=== PATIENT | male | born 1960 | race Caucasian/White ===

== ENCOUNTER → 2017-03-31 | Outpatient (CLI) | payer BC ==
[~2017-03-31] MED LIST: IBUP-103 PO
--- NOTE | 2017-03-31 15:38 | DIAGNOSTIC IMAGING REPORT ---
LEFT HIP UNILATERAL 2 VIEWS CLINICAL HISTORY: M25.50 Arthralgia of multiple sites pain COMPARISON: None. DISCUSSION: Mild degenerative narrowing left and joint space. No evidence for acetabular protrusion. 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 There is no evidence for soft tissue swelling. IMPRESSION: Mild/moderate degenerative change. No acute process. Electronically signed by: Ian Palomino M.D. 03/31/2017 3:38 PM Dictated Date/Time: 03/31/2017 3:37 PM
--- NOTE | 2017-03-31 15:41 | DIAGNOSTIC IMAGING REPORT ---
RIGHT HIP UNILATERAL 2 VIEWS CLINICAL HISTORY: Arthralgia of multiple sites. COMPARISON: None FINDINGS: Alignment of the right hip is anatomic. No fracture or suspicious lesion. Joint space is preserved and there is minimal osteophytosis of the right hip. There is no evidence for avascular necrosis. IMPRESSION: Preserved right hip joint space with minimal osteophytosis. Electronically signed by: Byron Ruiz M.D. 03/31/2017 3:41 PM Dictated Date/Time: 03/31/2017 3:40 PM
--- NOTE | 2017-03-31 15:41 | DIAGNOSTIC IMAGING REPORT ---
RIGHT KNEE 3 VIEWS CLINICAL HISTORY: M25.50 Arthralgia of multiple sites Right pain COMPARISON: None. DISCUSSION: The bones and joint spaces appear intact. There is no evidence of fracture, dislocation or bony disease. Small bony exostosis projecting from the medial femoral condyle. IMPRESSION: Minimal degenerative change. No acute process. Electronically signed by: Ian Palomino M.D. 03/31/2017 3:41 PM Dictated Date/Time: 03/31/2017 3:40 PM
--- NOTE | 2017-03-31 15:43 | DIAGNOSTIC IMAGING REPORT ---
LEFT KNEE 3 VIEWS CLINICAL HISTORY: M25.50 Arthralgia of multiple sites both knees pain COMPARISON: None. DISCUSSION: Rather significant degenerative change medial joint compartment. Mild degenerative change patellofemoral joint. Lateral joint compartments with minimal reactive osteophytic change. There is no evidence for soft tissue swelling. IMPRESSION: Moderate/rather significant degenerative change primarily involving the medial joint compartment. Electronically signed by: Ian Palomino M.D. 03/31/2017 3:42 PM Dictated Date/Time: 03/31/2017 3:41 PM
--- NOTE | 2017-03-31 15:44 | DIAGNOSTIC IMAGING REPORT ---
RIGHT HAND MIN 3 VIEWS ROUTINE CLINICAL HISTORY: Arthralgia of multiple sites. COMPARISON: None FINDINGS: Alignment of the right hand is anatomic. No acute fracture is identified. There is an old healed fracture of the right fifth metacarpal. No erosions are identified. Joint spaces are preserved. Mild osteophytosis is noted within several articulations. IMPRESSION: 1. No radiographic evidence of an erosive/inflammatory arthropathy. 2. Preserved joint spaces with minimal osteophytosis of several articulations. Electronically signed by: Byron Ruiz M.D. 03/31/2017 3:43 PM Dictated Date/Time: 03/31/2017 3:41 PM
--- NOTE | 2017-03-31 15:45 | DIAGNOSTIC IMAGING REPORT ---
LEFT HAND MIN 3 VIEWS ROUTINE CLINICAL HISTORY: M25.50 LEFT HAND PAIN COMPARISON: None. DISCUSSION: The bony mineralization appears normal. No fractures are visualized. There are no erosive or destructive changes. There are osteoarthritic changes most pronounced at the level of the first carpometacarpal joint, and first metacarpal phalangeal joint. IMPRESSION: 1. No acute fractures 2. No evidence of erosive disease 3. Mild osteoarthritic changes most pronounced at the level of the thumb Electronically signed by: Julio Cesar Larkin M.D. 03/31/2017 3:45 PM Dictated Date/Time: 03/31/2017 3:44 PM
== END | disposition home or self-care (01) ==
LOC: C.RAD1850 15:01
PROVIDERS: ATTEND Internal Medicine
DX: M25.50 Pain in unspecified joint (principal)

== ENCOUNTER → 2017-04-05 | Outpatient (CLI) | payer BC ==
[2017-04-05 11:27] LABS: HEMATOCRIT 47.7 % (42-52); MEAN CELL VOLUME 90.7 fL (80-100); MEAN CORPUSCULAR HEMOGLOBIN 29.7 pg (25-34); MEAN CORPUSCULAR HGB CONC 32.7 g/dl (32-36); MEAN PLATELET VOLUME 10.4 fL (7.4-10.4); PLATELET COUNT 247 K/uL (130-400); RED BLOOD COUNT 5.26 M/uL (4.7-6.1); WHITE BLOOD COUNT 7.57 K/uL (4.8-10.8)
[2017-04-05 11:37] LABS: ALT/SGPT 33 U/L (12-78); AST/SGOT 8 U/L (15-37); BLOOD UREA NITROGEN 20 mg/dl (7-18); BUN/CREATININE RATIO 16.4 (10-20); CALCIUM 9.5 mg/dl (8.5-10.1); CARBON DIOXIDE 32 mmol/L (21-32); CHLORIDE 107 mmol/L (98-107); CHOLESTEROL 237 mg/dl (0-200); GLUCOSE 96 mg/dl (70-99); POTASSIUM 4.4 mmol/L (3.5-5.1); SODIUM 144 mmol/L (136-145)
[2017-04-05 11:38] LABS: ALB/GLOB RATIO 1.4 (0.9-2); ALKALINE PHOSPHATASE 67 U/L (45-117); HDL CHOLESTEROL 60 mg/dl; LDL CHOLESTEROL CALCULATED 139 mg/dl; TRIGLYCERIDES 190 mg/dl (0-150); VERY LOW DENSITY LIPOPROT CALC 38 mg/dl
[2017-04-05 14:44] LABS: LYME DISEASE AB IGG NEG (NEG); LYME DISEASE AB IGM NEG (NEG)
== END | disposition home or self-care (01) ==
LOC: C.LAB 10:36
PROVIDERS: ATTEND Internal Medicine
DX: Z00.00 Encounter for general adult medical examination without abnormal findings (principal); M25.50 Pain in unspecified joint